=== PATIENT | female | born 1985 | race Caucasian/White ===

== ENCOUNTER 2017-01-05 14:42 | Emergency (ER) | payer OTHER | END 2017-01-05 15:42 | disposition home or self-care (01) | LOC: ER 14:42 | DX: K08.89 Other specified disorders of teeth and supporting structures (principal); E10.9 Type 1 diabetes mellitus without complications; F17.210 Nicotine dependence, cigarettes, uncomplicated; Z91.040 Latex allergy status ==

== ENCOUNTER 2017-02-17 01:24 | Emergency (ER) | payer OTHER | END 2017-02-17 04:20 | disposition home or self-care (01) | LOC: ER 01:24 | DX: J06.9 Acute upper respiratory infection, unspecified (principal); E10.65 Type 1 diabetes mellitus with hyperglycemia; F17.210 Nicotine dependence, cigarettes, uncomplicated; Z90.49 Acquired absence of other specified parts of digestive tract; Z91.040 Latex allergy status; Z79.899 Other long term (current) drug therapy | CPT/HCPCS: 36415; 87502; 96360 ==

== ENCOUNTER 2017-02-25 20:39 | Emergency (ER) | payer OTHER | END 2017-02-25 20:51 | disposition home or self-care (01) | LOC: ER 20:39 | DX: Z53.21 Procedure and treatment not carried out due to patient leaving prior to being seen by health care provider (principal) ==

== ENCOUNTER 2017-02-26 13:16 | Emergency (ER) | payer OTHER | END 2017-02-26 15:34 | disposition home or self-care (01) | LOC: ER 13:16 | DX: E86.0 Dehydration (principal); R55 Syncope and collapse; R53.83 Other fatigue; R53.81 Other malaise; E10.9 Type 1 diabetes mellitus without complications; F17.210 Nicotine dependence, cigarettes, uncomplicated; Z90.49 Acquired absence of other specified parts of digestive tract; Z91.040 Latex allergy status | CPT/HCPCS: 36415; 96361; 96374 ==

== ENCOUNTER 2017-03-12 17:54 | Emergency (ER) | payer OTHER | END 2017-03-12 20:50 | disposition home or self-care (01) | LOC: ER 17:54 | DX: R60.9 Edema, unspecified (principal); E10.9 Type 1 diabetes mellitus without complications; F41.1 Generalized anxiety disorder; F17.210 Nicotine dependence, cigarettes, uncomplicated; Z90.49 Acquired absence of other specified parts of digestive tract; Z79.899 Other long term (current) drug therapy; Z79.4 Long term (current) use of insulin; Z91.040 Latex allergy status | CPT/HCPCS: 36415 ==

== ENCOUNTER 2017-03-26 14:07 | Emergency (ER) | payer OTHER | END 2017-03-26 14:55 | disposition home or self-care (01) | LOC: ER 14:07 | DX: J20.9 Acute bronchitis, unspecified (principal); E11.9 Type 2 diabetes mellitus without complications; Z77.22 Contact with and (suspected) exposure to environmental tobacco smoke (acute) (chronic); Z90.49 Acquired absence of other specified parts of digestive tract; Z79.899 Other long term (current) drug therapy; Z79.4 Long term (current) use of insulin; Z91.040 Latex allergy status ==